=== PATIENT | male | born 1965 | race Caucasian/White ===

== ENCOUNTER 2021-04-02 08:43 | Emergency (ER) | payer OTHER ==
[~2021-04-02 08:43] MED LIST: AUGMENTIN 875-1 EACH PO; LOPRESSOR25 MG PO; NAPROSYN250 MG PO
[2021-04-02 09:08] LABS: BASOPHIL 0.2 % (0-2); EOSINOPHIL 1.5 % (0-5); HCT 45.9 % (42.0-52.0); HGB 15.8 g/dl (13.2-18.0); LYMPHOCYTE 13.7 % (15-48); MCH 30.7 pg (25.0-31.0); MCHC 34.4 g/dL (32.0-36.0); MCV 89.1 fL (78.0-100.0); MONOCYTE 7.3 % (0-12); MPV 9.8 fL (6.0-9.5); NRBC 0; PLT 192 K/uL (150-400); RBC 5.15 M/uL (4.70-6.00); RDW 12.6 % (11.5-14.0); WBC 9.4 K/uL (4.0-10.5)
[2021-04-02 09:29] LABS: BUN/CREAT RATIO (CALC) 14.2 RATIO; CREATININE 1.2 mg/dL (0.67-1.17); POTASSIUM 4.5 mmol/L (3.5-5.1)
[2021-04-02] MEDS ORDERED: AUGMENTIN 875-1 EACH PO (13:10)
== END 2021-04-02 13:44 | disposition home or self-care (01) ==
LOC: FER 08:43
PROVIDERS: Emergency Medicine
DX: S82.102A Unspecified fracture of upper end of left tibia, initial encounter for closed fracture (principal); K04.7 Periapical abscess without sinus; K11.20 Sialoadenitis, unspecified; K11.8 Other diseases of salivary glands; I10 Essential (primary) hypertension; Z88.6 Allergy status to analgesic agent; W18.09XA Striking against other object with subsequent fall, initial encounter; Y92.009 Unspecified place in unspecified non-institutional (private) residence as the place of occurrence of the external cause
CPT/HCPCS: 36415; 70487; 73590; 80048; 85025; Q9967

== ENCOUNTER 2022-03-07 04:20 | Day surgery (SDCO) | payer OTHER ==
[~2022-03-07] VITALS: Ht 172.7 cm; Wt 107.7 kg
[~2022-03-07 04:20] MED LIST changes: +CLONIDINE HCL0.1 MG PO; +LISINOPRIL40 MG PO; +NORVASC2.5 MG PO
[2022-03-07 04:53] LABS: BASOPHIL 0.5 % (0-2); EOSINOPHIL 3.3 % (0-5); HCT 42.8 % (42.0-52.0); HGB 14.7 g/dl (13.2-18.0); LYMPHOCYTE 26.4 % (15-48); MCH 30.7 pg (25.0-31.0); MCHC 34.3 g/dL (32.0-36.0); MCV 89.4 fL (78.0-100.0); MONOCYTE 9.4 % (0-12); MPV 9.6 fL (6.0-9.5); NEUTROPHIL 59.9 % (41-80); NRBC 0; PLT 184 K/uL (150-400); RBC 4.79 M/uL (4.70-6.00); RDW 12.3 % (11.5-14.0); WBC 6.6 K/uL (4.0-10.5)
[2022-03-07 05:03] LABS: BILIRUBIN NEGATIVE (NEGATIVE); BLOOD TRACE-INTACT Ery/uL (NEGATIVE); CLARITY CLEAR (CLEAR); COLOR YELLOW (YELLOW); GLUCOSE (U) NORMAL (NORMAL); LEUKOCYTES NEGATIVE Leu/uL (NEGATIVE); NITRITE NEGATIVE (NEGATIVE); PROTEIN NEGATIVE (NEGATIVE); SPECIFIC GRAVITY 1.025 (1.001-1.030); UROBILINOGEN 0.2 mg/dL (0.2-1.0); pH 5.5 (5.0-9.0)
[2022-03-07 05:08] LABS: URINARY RBC RARE
[2022-03-07 05:09] LABS: ALBUMIN 3.5 g/dL (3.4-5.0); BILIRUBIN - TOTAL 0.6 mg/dL (0.2-1.0); BUN/CREAT RATIO (CALC) 15.7 RATIO; CREATININE 1.21 mg/dL (0.67-1.17); GLOBULIN (CALCULATION) 3.6 g/dL; POTASSIUM 3.8 mmol/L (3.5-5.1); TOTAL PROTEIN 7.1 g/dL (6.4-8.2)
[2022-03-07 06:49] LABS: CORONAVIRUS 2019 SARS-COV-2 NEGATIVE (NEGATIVE); INFLUENZA A NAA NEGATIVE (NEGATIVE)
[2022-03-07] MEDS ORDERED: CLONIDINE HCL0.1 MG PO (11:05)
[2022-03-08 06:28] LABS: ALBUMIN 3.2 g/dL (3.4-5.0); BILIRUBIN - DIRECT 0.2 mg/dL (0.00-0.20); BILIRUBIN - TOTAL 1.5 mg/dL (0.2-1.0); BUN/CREAT RATIO (CALC) 11.9 RATIO; CREATININE 1.18 mg/dL (0.67-1.17); GLOBULIN (CALCULATION) 3.5 g/dL; POTASSIUM 3.8 mmol/L (3.5-5.1); TOTAL PROTEIN 6.7 g/dL (6.4-8.2)
[2022-03-08] MEDS ORDERED: HYDROCODON-ACE1 EAC6 PO (13:02)
== END 2022-03-08 15:00 | disposition home or self-care (01) ==
LOC: FER 04:20 → FMS 09:36
PROVIDERS: Emergency Medicine; ADMIT Family Medicine
DX: K80.20 Calculus of gallbladder without cholecystitis without obstruction (principal); K36 Other appendicitis; I12.9 Hypertensive chronic kidney disease with stage 1 through stage 4 chronic kidney disease, or unspecified chronic kidney disease; N18.2 Chronic kidney disease, stage 2 (mild); I82.4Z9 Acute embolism and thrombosis of unspecified deep veins of unspecified distal lower extremity; R73.9 Hyperglycemia, unspecified; Z20.822 Contact with and (suspected) exposure to COVID-19
CPT/HCPCS: 36415; 76705; 80048; 80053; 80076; 81001; 83036; 85025; G0378; J1100; J1170; J1644; J2250; J2405; J2543; J2704; J2710; J3010; J7030; J7120; U0002